=== PATIENT | male | born 2005 | race Caucasian/White ===

== ENCOUNTER 2024-12-28 13:10 | Emergency (ER) | payer OTHER, SELFPAY ==
[2024-12-28 13:10] VITALS: BP 134/80; PULSE 79; RESP 16; TEMP 37.1; O2SAT 100
[2024-12-28 13:12] VITALS: BMI 23.6
[2024-12-28 14:19] LABS: Hematocrit 43.2 % (40-54); Hemoglobin 15.2 g/dL (13.0-16.5); Immature Granulocytes Count 0.040 X10^3/uL (0.0-0.0); Mean Corp Hgb Conc 35.2 g/dL (32-36); Mean Corpuscular Volume 89.4 fL (80-94); Mean Platelet Vol. 9.5 fl (6.2-12.0); NRBC Flagged by Analyzer 0 % (0-5); Platelet Count 283 K/mm3 (150-450); RBC Distribution Width CV 11.9 % (11.6-14.6); RBC Distribution Width SD 38.5 fl (35.1-43.9); Red Blood Count 4.83 M/mm3 (4.6-6.2); White Blood Count 9.5 K/mm3 (4.4-11.0)
[2024-12-28] MEDS: 0.9% Normal Saline (1000mL) 1,000 ML 999 ML IV (14:51)
[2024-12-28 15:10] VITALS: BP 127/80; PULSE 76; RESP 16; O2SAT 100
--- NOTE | 2024-12-28 15:14 | CT_ITS ---
PROCEDURE: BRAIN/HEAD WITHOUT CONTRAST 12/28/2024 REASON FOR EXAM: HEADACHE TECHNIQUE: BRAIN/HEAD WITHOUT CONTRAST Coronal and Sagittal reconstruction series were provided. One or more dose reduction techniques were used (e.g., Automated exposure control, adjustment of the mA and/or kV according to patient size, use of iterative reconstruction technique. RADIATION DOSE SUMMARY: CTDlvol: 44.99 mGy DLP: 812.98 mGycm COMPARISON: None. FINDINGS: No acute intracranial hemorrhage, extra-axial collection, mass effect or evidence of acute infarct. Ventricles and subarachnoid spaces are normal in size. Asymmetric narrow caliber of the left lateral ventricle relative to the right, an anatomic variant. Unremarkable orbits. Intact skull base and calvarium. Complete opacification of right maxillary sinus with hypoplasia relative to the left maxillary sinus. Remainder of paranasal sinuses and mastoid air cells are clear. CT/Brain/Head without Contrast IMPRESSION: 1. No acute intracranial abnormality. 2. Right maxillary sinus disease. Reading Location: [id number]
[2024-12-28 15:36] LABS: AST(SGOT) 40 U/L (<=37); Alanine Aminotransfer ALT/SGPT 69 U/L (<=46); Albumin, Serum 4.6 g/dL (3.5-5.0); Alkaline Phosphatase 83 U/L (40-129); Anion Gap 16 (5-15); BUN 11 mg/dL (4-19); BUN/Creat Ratio 14.1 RATIO (10-20); Calcium,Total 9.7 mg/dL (7.6-11.0); Carbon Dioxide 21.6 mmol/L (21.0-32.0); Chloride 99 mmol/L (98-108); Estimated Creatinine Clearance 156.88 ml/min (50-250); Globulin 3.2 g/dL (2.2-4.2); Glucose 122 mg/dL (70-99); Lipase 24 U/L (13-75); Potassium 4.0 mmol/L (3.3-5.1)
--- NOTE | 2024-12-28 16:04 | EDS_ITS ---
HPI History of Present Illness Chief Complaint: General Illness Narrative Narrative: Patient is a 19-year-old male with no known significant past medical history who presented to the emergency department the chief complaint of headache, nausea vomiting not feeling well. According to the parents he was just here last night around 10 PM was given a migraine cocktail and was sent home. They noted that he still is having a headache and having nausea and vomiting not feeling well therefore they brought him back. They deny any recent contacts. PFSH PFSH Home Medications ?Medication ?Instructions ?Recorded ?Last Taken ?Type No Known/Unobtainable [No Known 5 Unknown History Home Medications] Allergy/AdvReac Type Severity Reaction Status Date / Time No Known Allergies Allergy Verified 12/28/24 13:13 Family History no significant family his Surgical History Status post medial meniscus repair of left knee Surgical History no surgical history Social History Smoking Status: Never smoker ROS ROS ED ROS Narrative Constitutional: Complains of fever and chills as well as headache denies lightheadedness or dizziness Eyes: Denies double vision blurry vision change in vision Abdomen: Complains of nausea and vomiting as noted above denies any abdominal pain : Denies urinary symptoms Neurological: Denies numbness, weakness, tingling Musculoskeletal: Denies back pain Skin: Denies any rashes or lesions EXAM Physical Exam Narrative Exam Narrative: General: Patient was lying in bed rest comfortably did not appear to be acute distress Head: Atraumatic, normocephalic Eyes: PERRL bilaterally, EOMI blood, no conjunctival injection noted Neck: Soft, supple, trachea midline Cardiovascular: Regular rate and rhythm no murmurs gallops rubs noted Respiratory: Clear to auscultation bilaterally Abdomen: Soft, nondistended, no tenderness palpation Extremities: +5/5 strength noted in the bilateral upper and lower extremities Neurological: Patient following commands knew that he was at [facility] year is 2024. No concern for meningitis Skin: Warm, dry, intact no rashes or lesions noted no petechia no purpura Const Vital Signs: 12/28/24 13:10 12/28/24 13:26 12/28/24 15:10 Temperature 98.8 F Temperature Source Oral Pulse Rate 79 76 Respiratory Rate 16 16 Respiratory Effort Normal Respiratory Pattern Normal Blood Pressure 134/80 H 127/80 H Blood Pressure Mean 98 95 Pulse Ox 100 100 Oxygen Delivery Method Room Air Room Air 12/28/24 17:00 Temperature Temperature Source Pulse Rate 73 Respiratory Rate 14 Respiratory Effort Respiratory Pattern Blood Pressure 139/92 H Blood Pressure Mean 107 Pulse Ox 100 Oxygen Delivery Method Room Air MDM MDM MDM Narrative Medical decision making narrative: Patient is a 19-year-old male who presented to the emergency department chief complaint of headache, nausea vomiting. On the differential diagnosis includes but not limited to migraine headache, viral gastroenteritis, dehydration, heriberto ctrolyte abnormality. Once workup is obtained reviewed he will be reevaluated. Patient be given IV fluids Zofran and Toradol. Patient CBC was reviewed and showed no evidence of leukocytosis white blood count of 9.5, he was 15.2, platelet count of 283. Patient sodium 136, potassium normal at 4, creatinine normal at 0.80. Patient's glucose was 122, AST and ALT were 40 and 69 respectively total bilirubin normal at 0.36. Patient lipase normal at 24. Patient's CT head brain without contrast showed no acute intracranial abnormalities. On reevaluation the patient and he states that he was still having a headache and was feeling better but not significantly. He was ordered Toradol Benadryl and D5 NS. On reevaluation of the patient again and he is feeling better he did pass oral challenge. Repeat abdominal exam performed again at 6:35 PM his abdomen remains benign therefore do not feel that CT abdomen pelvis is indicated at this point in time. He was advised to follow-up with In outpatient settings to start with a bland diet and advance as tolerated. He already has Zofran at home ODT he is advised to use this as prescribed. Parents and himself are agreeable with this plan all question concerns answered he was discharged home in stable condition. Lab Data Labs: Laboratory Results - last 24 hr 12/28/24 13:33 WBC 9.5 RBC 4.83 Hgb 15.2 Hct 43.2 MCV 89.4 MCH 31.5 MCHC 35.2 RDW Std Deviation 38.5 RDW Coeff of Elmer 11.9 Plt Count 283 MPV 9.5 Immature Gran % (Auto) 0.400 Neut % (Auto) 85.2 H Lymph % (Auto) 6.9 L [place] % (Auto) 7.4 Eos % (Auto) 0.0 Baso % (Auto) 0.1 Absolute Neuts (auto) 8.1 H Absolute Lymphs (auto) 0.66 L Nucleated RBC % 0 Sodium 136 Potassium 4.0 Chloride 99 Carbon Dioxide 21.6 Anion Gap 16 H BUN 11 Creatinine 0.80 Estim Creat Clear Calc 156.88 Est GFR (MDRD) Non-Af 130 BUN/Creatinine Ratio 14.1 Glucose 122 H Calcium 9.7 Total Bilirubin 0.36 AST 40 H ALT 69 H Alkaline Phosphatase 83 Total Protein 7.9 Albumin 4.6 Globulin 3.2 Albumin/Globulin Ratio 1.4 Lipase 24 Radiography Diagnostic Testing: Clinical Impression(s) from Imaging Studies Brain CT 12/28/24 15:14 IMPRESSION: 1. No acute intracranial abnormality. 2. Right maxillary sinus disease. Reading Location: [facility] Discharge Plan Triage Chief Complaint: General Illness ED Provider: Jg Woodard Dx/Rx/DC Orders Clinical Impression: Headache, Nausea & vomiting Prescriptions: No Action No Known Home Medications Primary Care Provider: Care Physician,No Primary Referrals: Care Physician,No Primary [Primary Care Provider] - Activity Restrictions/Additional Instructions: Follow-up with your doctor in outpatient setting. Return with worsening symptoms or concerns. Your CT of your head was normal, your blood work did not show any acute findings no evidence of dehydration. Ensure that you are adequately hydrating with plenty of water start with a bland diet such as crackers, plain toast etc. and advance as tolerated. Rotate Tylenol and ibuprofen [id number] for your headache when you do this she can take something every 3 hours max dose of Tylenol in 24 hours 4000 mg max dose of ibuprofen in 24 hours 3200 mg. Use Zofran that you have at home as prescribed Print Language: Indonesian Disposition Disposition: Home, Self Care
[2024-12-28 17:00] VITALS: BP 139/92; PULSE 73; RESP 14; O2SAT 100
[2024-12-28] MEDS: DiphenhydrAMINE 50 MG/ML Syringe 25 MG IV (17:04)
[2024-12-28] MEDS: Dextrose 5%/0.9% NaCl 1,000 ML 999 ML IV (17:04)
[2024-12-28 18:44] VITALS: BP 139/92; PULSE 73; RESP 14; TEMP 37.1; O2SAT 100
--- OUTSIDE RECORDS SUMMARY | 2024-12-28 22:19 | XMS RPT_ITS | CCD ---
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, Md Primary Care Provider Cammy DALIA Connolly Referring Unavailable HUMBERTO ESCAMILLA Attending Unavailabl e NO PRIMARY CARE, Primary Care Unavailable NO PRIMARY CARE, Primary Care Unavailable REFERRED, SELF Referring Unavailable TOMAS MALIN JR Attending Unavailable REFERRED, SELF Referring Unavailable TOMAS MALIN JR Attending Unavailable NO PRIMARY CARE, Primary Care Unavailable NO PRIMARY CARE, Primary Care Unavailable TOMAS MALIN JR Attending Unavailable TOMAS MALIN JR Admitting Unavailable NO PRIMARY CAREMD Referring Unavailable TOMAS MALIN JR Attending Unavailable NO PRIMARY CARE, Primary Care Unavailable MILDRED BRUNER Attending Unavailable NO PRIMARY CARE, Primary Care Unavailable NO PRIMARY CARE, Referring Unavailable NO PRIMARY CARE, Primary Care Unavailable TOMAS MALIN JR Attending Unavailable NO PRIMARY CARE, Referring Unavailable Dr. Maximo Garcia DO Emergency Provider Care Physician, No Primary Primary Care Provider Unavailable Dr. Jg Woodard DO Referring Provider Dr. Jg Woodard DO Emergency Provider [phone] Care Physician, No Primary Primary Care Provider Unavailable Unavailable Primary Care Provider Unavailabl e Medications Current Medications Medication Drug Class(es) Dates Sig (Normalized) Sig (Original) acetaminophen 325 mg / HYDROcodone bitartrate 5 mg oral tablet (1 source) Opioid Agonist Start: 09-03-2022 End: 09-08-2022 take 1 tablet by mouth every six hours as needed for pain HYDROcodone-aceta minophen (NORCO) 5-325 MG tablet Take 1 Tablet by mouth every 6 hours as needed for Pain for up to 5 days 12 Tablet 0 09/03/2022 09/08/2022 Active aspirin 81 mg delayed release oral tablet (1 source) Platelet Aggregation Inhibitor, Nonsteroidal Anti-inflammatory Drug Start: 09-03-2022 End: 09-17-2022 take 1 tablet by mouth once daily aspirin EC (ECOTRIN LOW STRENGTH) 81 MG EC tablet Take 1 Tablet (81 mg) by mouth daily for 14 days 14 Tablet 0 09/03/2022 09/17/2022 Active cetirizine hydrochloride 10 mg oral tablet (1 source) Histamine-1 Receptor Antagonist Start: 07-11-2019 take 1 tablet by mouth once daily cetirizine (ZYRTEC) 10 mg tablet Indications: Sore throat Take 1 tablet by mouth once daily. 10 tablet 07/11/2019 Active ibuprofen 200 mg oral tablet (1 source) Nonsteroidal Anti-inflammatory Drug Start: 09-03-2022 take 2 tablets by mouth every six hours as needed for pain ibuprofen (MOTRIN) 200 MG tablet Take 2 Tablets (400 mg) by mouth every 6 hours as needed for Pain Take with meals. 40 Tablet 0 09/03/2022 Active ondansetron 4 mg disintegrating oral tablet (2 sources) Serotonin-3 Receptor Antagonist Start: 12-28-2024 take 1 tablet by mouth three times daily as needed for nausea and vomiting Ondansetron 4 mg tablet,disintegra ting Active 4 mg PO THREE TIMES A DAY as needed for nausea and vomiting 21 0 December 28, 2024 12:27am Start: 09-03-2022 take 1 tablet by tae th every eight hours as needed for nausea ondansetron (ZOFRAN) 4 MG tablet Take 1 Tablet (4 mg) by mouth every 8 hours as needed for Nausea 10 Tablet 0 09/03/2022 Active Completed/Discontinued Medications Medication Drug Class(es) Dates Sig (Normalized) Sig (Original) calcium chloride 0.0014 meq/ml / potassium chloride 0.004 meq/ml / sodium chloride 0.103 meq/ml / sodium lactate 0.028 meq/ml injectable solution (1 source) Start: 09-03-2022 End: 09-03-2022 CONTINUOUS, Intravenous, at 112 mL/hr, Starting on Wed09/03/22 at 1330, For 90 days, PACU Oxygen (1 source) Start: 09-03-2022 End: 09-03-2022 See Flowsheet Row, PRN, Starting on Wed09/03/22 at 1309, Until Wed09/03/22 at 1444 Keep sats greater or equal to 95% Problems Problem Classification Problem Date Documented Da te Episodic/Chronic Headache; including migraine (2 sources) Headache; Translations: [Headache] 12-28-2024 Episodic Joint disorders and dislocations; trauma-related (3 sources) Tear of medial meniscus of knee; Translations: [Other tear of medial meniscus, current injury, left knee, initial encounter] Onset: 08-04-2022 09-03-2022 Episodic Nausea and vomiting (1 source) Nausea and vomiting; Translations: [Nausea with vomiting, unspecified] 12-28-2024 Episodic Viral infection (1 source) Viral disease; Translations: [Viral infection, unspecified] 12-28-2024 Episodic Results Test Name Value Interpretation Reference Range Facility Absolute lymphocyte countOrd ered By: Jg Woodard on 12-28-2024 Lymphocytes Auto (Unsp spec) [#/Vol] 0.66 10*3/uL Low 0.83-4.51 [facility] Absolute neutrophil countOrd ered By: Jg Woodard on 12-28-2024 Neutrophils (Bld) [#/Vol] 8.1 10*3/uL High 2.0-7.7 [facility] Anion gap in Serum or Plasma Ordered By: Jg Woodard on 12-28-2024 Anion gap [Moles/Vol] 16 mmol/L High 5-15 [facility] Automated lymphocyte count a s percentage of total leukocytesOrdered By: Jg Woodard on 12-28-2024 Lymphocytes/100 WBC Auto (Unsp spec) 6.9 % Low 19-41 [facility] BUN/creatinine ratioOrdered By: Jg Woodard on 12-28-2024 Urea nitrogen/Creatinine [Mass ratio] 14.1 mg/mg 10-20 [facility] Basophil percentageOrdered B y: Jg Woodard on 12-28-2024 Basophils/100 WBC (Bld) 0.1 % 0-1 [facility] Bilirubin, totalOrdered By: Jg Woodard on 12-28-2024 Bilirubin [Mass/Vol] 0.36 mg/dL 0.00-1.30 [facility] Carbon dioxide, total [Moles /volume] in Central venous bloodOrdered By: Jg Woodard on 12-28-2024 CO2 [Moles/Vol] 21.6 mmol/L 21.0-32.0 [facility] Chloride assayOrdered By: Paramjit Woodard on 12-28-2024 Chloride [Moles/Vol] 99 mmol/L 98-108 [facility] Eosinophil percentageOrdered By: Jg Woodard on 12-28-2024 Eosinophils/100 WBC (Bld) 0.0 % 0-5 [facility] Erythrocyte distribution wid th ratioOrdered By: Jg Woodard on 12-28-2024 Erythrocyte distribution width (RBC) [Ratio] 11.9 % 11.6-14.6 [facility] Erythrocyte distribution wid th standard deviationOrdered By: Jg Woodard on 12-28-2024 Erythrocyte distribution width (RBC) [Ratio] 38.5 fl 35.1-43.9 [facility] Glomerular filtration rate ( GFR) estimation/1.73 sq m using serum, plasma, or whole bOrdered By: Jg Woodard on 12-28-2024 GFR/1.73 sq M.predicted among non-blacks MDRD (S/P/Bld) [Vol rate/Area] 130 mL/min/{1.73_m2} >60 [facility] Comment on above: mL/min/1.73m2 CKD-EP I Creatinine Equation (2020) Hematocrit Auto (Bld) [Volum e fraction]Ordered By: Jg Woodard on 12-28-2024 Hematocrit (Bld) [Volume fraction] 43.2 % 40-54 [facility] Hemoglobin measurementOrdere d By: Jg Woodard on 12-28-2024 Hemoglobin (Bld) [Mass/Vol] 15.2 g/dL 13.0-16.5 [facility] Immature granulocytes/100 WB C Auto (Bld)Ordered By: Jg Woodard on 12-28-2024 Immature granulocytes/100 WBC (Bld) 0.400 % 0.0-0.9 [facility] Comment on above: IG% - Immature Granu locytes (promyelocytes, myelocytes and metamyelocytes) > 1% indicates that a LEFT SHIFT is Present. Laboratory - Chemistry and C hemistry - challengeOrdered By: Jg Woodard on 12-28-2024 AST [Catalytic activity/Vol] 40 U/L High <38 [facility] Lipase measurementOrdered By : Jg Woodard on 12-28-2024 Lipase [Catalytic activity/Vol] 24 U/L 13-75 [facility] Comment on above: Please note:LIPASE r evised reference range effective 22. New Lipase methodology. Expected to produce lower values than the previous assay method. NEW Reference Range: 13 - 75 U/L MCV (mean corpuscular volume ) determinationOrdered By: Jg Woodard on 12-28-2024 MCV (RBC) [Entitic vol] 89.4 fL 80-94 [facility] Mean corpuscular hemoglobin (MCH) determinationOrdered By: Jg Woodard on 12-28-2024 MCH (RBC) [Entitic mass] 31.5 pg 27.0-32.0 [facility] Mean corpuscular hemoglobin concentration (MCHC) determinationOrdered By: Jg Woodard on 12-28-2024 MCHC (RBC) [Mass/Vol] 35.2 g/dL 32-36 [facility] Mean platelet volume determi nationOrdered By: Jg Woodard on 12-28-2024 Platelet mean volume (Bld) [Entitic vol] 9.5 fL 6.2-12.0 [facility] Monocyte percentageOrdered B y: Jg Woodard on 12-28-2024 Monocytes/100 WBC (Bld) 7.4 % 0-10 [facility] Neutrophil percentageOrdered By: Jg Woodard on 12-28-2024 Neutrophils/100 WBC (Bld) 85.2 % High 47-70 [facility] Nucleated red blood cell per centageOrdered By: Jg Woodard on 12-28-2024 Nucleated RBC/100 WBC (Bld) [Ratio] 0 % 0-5 [facility] Platelet countOrdered By: Paramjit Woodard on 12-28-2024 Platelets (Bld) [#/Vol] 283 10*3/uL 150-450 [facility] Potassium measurement (mass/ volume)Ordered By: Jg Woodard on 12-28-2024 Potassium (Unsp spec) [Mass/Vol] 4.0 mmol/L 3.3-5.1 [facility] RBC Auto (Bld) [#/Vol]Ordere d By: Jg Woodard on 12-28-2024 RBC (Bld) [#/Vol] 4.83 10*6/uL 4.6-6.2 [facility] Serum creatinine measurement (mass/volume)Ordered By: Jg Woodard on 12-28-2024 Creatinine [Mass/Vol] 0.80 mg/dL 0.70-1.20 [facility] Serum globulin measurementOr dered By: Jg Woodard on 12-28-2024 Globulin (S) [Mass/Vol] 3.2 g/dL 2.2-4.2 [facility] Serum glucose measurement (m ass/volume)Ordered By: Jg Woodard on 12-28-2024 Glucose [Mass/Vol] 122 mg/dL High 70-99 [facility] Serum or plasma alanine chen otransferase (ALT) measurementOrdered By: Jg Woodard on 12-28-2024 ALT [Catalytic activity/Vol] 69 U/L High <47 [facility] Serum or plasma albumin bre urement (mass/volume)Ordered By: Jg Woodard on 12-28-2024 Albumin [Mass/Vol] 4.6 g/dL 3.5-5.0 [facility] Serum or plasma albumin/glob ulin mass ratioOrdered By: Jg Woodard on 12-28-2024 Albumin/Globulin [Mass ratio] 1.4 {ratio} 0.9-2.4 [facility] Serum or plasma alkaline nestor sphatase measurementOrdered By: Jg Woodard on 12-28-2024 ALP [Catalytic activity/Vol] 83 U/L 40-129 [facility] Serum or plasma calcium bre urement (mass/volume)Ordered By: Jg Woodard on 12-28-2024 Calcium [Mass/Vol] 9.7 mg/dL 7.6-11.0 [facility] Serum or plasma urea nitroge n measurement (mass/volume)Ordered By: Jg Woodard on 12-28-2024 Urea nitrogen [Mass/Vol] 11 mg/dL 4-19 [facility] Sodium levelOrdered By: Pamela Woodard on 12-28-2024 Sodium [Moles/Vol] 136 mmol/L 133-145 [facility] Total proteinOrdered By: Levi Woodard on 12-28-2024 Protein [Mass/Vol] 7.9 g/dL 5.9-8.4 [facility] White blood cell (WBC) count Ordered By: Jg Woodard on 12-28-2024 WBC (Bld) [#/Vol] 9.5 10*3/uL 4.4-11.0 [facility] Absolute lymphocyte countOrd ered By: Maximo Garcia on 12-27-2024 Lymphocytes Auto (Unsp spec) [#/Vol] 0.85 10*3/uL 0.83-4.51 [facility] Absolute neutrophil countOrd ered By: Maximo Garcia on 12-27-2024 Neutrophils (Bld) [#/Vol] 6.3 10*3/uL 2.0-7.7 [facility] Anion gap in Serum or Plasma Ordered By: Maximo Garcia on 12-27-2024 Anion gap [Moles/Vol] 15 mmol/L 5-15 [facility] Automated lymphocyte count a s percentage of total leukocytesOrdered By: Maximo Garcia on 12-27-2024 Lymphocytes/100 WBC Auto (Unsp spec) 10.4 % Low 19-41 [facility] BUN/creatinine ratioOrdered By: Maximo Garcia on 12-27-2024 Urea nitrogen/Creatinine [Mass ratio] 12.5 mg/mg 10-20 [facility] Basophil percentageOrdered B y: Maximo Garcia on 12-27-2024 Basophils/100 WBC (Bld) 0.4 % 0-1 [facility] Bilirubin directOrdered By: Maximo Garcia on 12-27-2024 Bilirubin.direct [Mass/Vol] 0.11 mg/dL 0.00-0.30 [facility] Bilirubin, totalOrdered By: Maximo Garcia on 12-27-2024 Bilirubin [Mass/Vol] 0.30 mg/dL 0.00-1.30 [facility] Carbon dioxide, total [Moles /volume] in Central venous bloodOrdered By: Maximo Garcia on 12-27-2024 CO2 [Moles/Vol] 24.4 mmol/L 21.0-32.0 [facility] Chloride assayOrdered By: Kaylynn Garcia on 12-27-2024 Chloride [Moles/Vol] 99 mmol/L 98-108 [facility] Eosinophil percentageOrdered By: Maximo Garcia on 12-27-2024 Eosinophils/100 WBC (Bld) 0.1 % 0-5 [facility] Erythrocyte distribution wid th ratioOrdered By: Maximo Garcia on 12-27-2024 Erythrocyte distribution width (RBC) [Ratio] 11.9 % 11.6-14.6 [facility] Erythrocyte distribution wid th standard deviationOrdered By: Maximo Garcia on 12-27-2024 Erythrocyte distribution width (RBC) [Ratio] 39.3 fl 35.1-43.9 [facility] Glomerular filtration rate ( GFR) estimation/1.73 sq m using serum, plasma, or whole bOrdered By: Maximo Garcia on 12-27-2024 GFR/1.73 sq M.predicted among non-blacks MDRD (S/P/Bld) [Vol rate/Area] 127 mL/min/{1.73_m2} >60 [facility] Comment on above: mL/min/1.73m2 CKD-EP I Creatinine Equation (2020) Hematocrit Auto (Bld) [Volum e fraction]Ordered By: Maximo Garcia on 12-27-2024 Hematocrit (Bld) [Volume fraction] 44.3 % 40-54 [facility] Hemoglobin measurementOrdere d By: Maximo Garcia on 12-27-2024 Hemoglobin (Bld) [Mass/Vol] 16.0 g/dL 13.0-16.5 [facility] Immature granulocytes/100 WB C Auto (Bld)Ordered By: Maximo Garcia on 12-27-2024 Immature granulocytes/100 WBC (Bld) 0.500 % 0.0-0.9 [facility] Comment on above: IG% - Immature Granu locytes (promyelocytes, myelocytes and metamyelocytes) > 1% indicates that a LEFT SHIFT is Present. Laboratory - Chemistry and C hemistry - challengeOrdered By: Maximo Garcia on 12-27-2024 AST [Catalytic activity/Vol] 39 U/L High <38 [facility] Lipase measurementOrdered By : Maximo Garcia on 12-27-2024 Lipase [Catalytic activity/Vol] 16 U/L 13-75 [facility] Comment on above: Please note:LIPASE r evised reference range effective 22. New Lipase methodology. Expected to produce lower values than the previous assay method. NEW Reference Range: 13 - 75 U/L MCV (mean corpuscular volume ) determinationOrdered By: Maximo Garcia on 12-27-2024 MCV (RBC) [Entitic vol] 90.2 fL 80-94 [facility] Mean corpuscular hemoglobin (MCH) determinationOrdered By: Maximo Garcia on 12-27-2024 MCH (RBC) [Entitic mass] 32.6 pg High 27.0-32.0 [facility] Mean corpuscular hemoglobin concentration (MCHC) determinationOrdered By: Maximo Garcia on 12-27-2024 MCHC (RBC) [Mass/Vol] 36.1 g/dL High 32-36 [facility] Mean platelet volume determi nationOrdered By: Maximo Garcia on 12-27-2024 Platelet mean volume (Bld) [Entitic vol] 9.7 fL 6.2-12.0 [facility] Monocyte percentageOrdered B y: Maximo Garcia on 12-27-2024 Monocytes/100 WBC (Bld) 11.6 % High 0-10 [facility] Neutrophil percentageOrdered By: Maximo Garcia on 12-27-2024 Neutrophils/100 WBC (Bld) 77.0 % High 47-70 [facility] Nucleated red blood cell per centageOrdered By: Maximo Garcia on 12-27-2024 Nucleated RBC/100 WBC (Bld) [Ratio] 0 % 0-5 [facility] Platelet countOrdered By: Kaylynn Garcia on 12-27-2024 Platelets (Bld) [#/Vol] 286 10*3/uL 150-450 [facility] Potassium measurement (mass/ volume)Ordered By: Maximo Garcia on 12-27-2024 Potassium (Unsp spec) [Mass/Vol] 3.6 mmol/L 3.3-5.1 [facility] RBC Auto (Bld) [#/Vol]Ordere d By: Maximo Garcia on 12-27-2024 RBC (Bld) [#/Vol] 4.91 10*6/uL 4.6-6.2 [facility] Serum creatinine measurement (mass/volume)Ordered By: Maximo Garcia on 12-27-2024 Creatinine [Mass/Vol] 0.87 mg/dL 0.70-1.20 [facility] Serum globulin measurementOr dered By: Maximo Garcia on 12-27-2024 Globulin (S) [Mass/Vol] 3.2 g/dL 2.2-4.2 [facility] Serum glucose measurement (m ass/volume)Ordered By: Maximo Garcia on 12-27-2024 Glucose [Mass/Vol] 112 mg/dL High 70-99 [facility] Serum or plasma alanine chen otransferase (ALT) measurementOrdered By: Maximo Garcia on 12-27-2024 ALT [Catalytic activity/Vol] 74 U/L High <47 [facility] Serum or plasma albumin bre urement (mass/volume)Ordered By: Maximo Garcia on 12-27-2024 Albumin [Mass/Vol] 4.5 g/dL 3.5-5.0 [facility] Serum or plasma alkaline nestor sphatase measurementOrdered By: Maximo Garcia on 12-27-2024 ALP [Catalytic activity/Vol] 81 U/L 40-129 [facility] Serum or plasma calcium bre urement (mass/volume)Ordered By: Maximo Garcia on 12-27-2024 Calcium [Mass/Vol] 9.6 mg/dL 7.6-11.0 [facility] Serum or plasma urea nitroge n measurement (mass/volume)Ordered By: Maximo Garcia on 12-27-2024 Urea nitrogen [Mass/Vol] 11 mg/dL 4-19 [facility] Sodium levelOrdered By: Maxi Garcia on 12-27-2024 Sodium [Moles/Vol] 138 mmol/L 133-145 [facility] Streptococcus pyogenes rRNA detection in throat by DNA probeOrdered By: Maximo Garcia on 12-27-2024 S. pyogenes rRNA Probe Ql (Throat) [facility] Total proteinOrdered By: Donato Garcia on 12-27-2024 Protein [Mass/Vol] 7.7 g/dL 5.9-8.4 [facility] White blood cell (WBC) count Ordered By: Maximo Garcia on 12-27-2024 WBC (Bld) [#/Vol] 8.2 10*3/uL 4.4-11.0 [facility] Progress Noteon 12-04-2022 [employer] Authentication Interface Message Text Date of service: December 04, 2022 Patient's name: Matt Lay CSN: [id number] DIAGNOSIS: Follow-up left knee arthroscopic Lateral meniscus partial meniscectomy and repair with all inside technique performed by Dr. Kimo Jr. on 09/03/22. HISTORY OF PRESENT ILLNESS: Matt Lay presents today for follow-up of the abovementioned procedure. Matt has reportedly done well without complaints of significant pain, numbness, or tingling in the left lower extremity while in the brace. He has been weightbearing as tolerated. He is yet to begin physical therapy as prescribed. He is yet to return to running or jumping activities. Matt has not had fevers, chills, night sweats, or additional symptomology suggestive of infection. 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 The history is provided by Matt and his mother, who accompany him today. They deny additional questions or concerns at this time. PHYSICAL EXAMINATION: Matt is a previously healthy well-nourished, well-developed 17 y.o. year-old male, in no apparent distress. Upon examination of the left knee, the incisions are well-healed. The surrounding skin is intact. There is a large mass located in the posterior medial aspect of his knee, which was previously drained and injected and has since returned. There is no erythema, edema, or drainage noted. The left lower extremity is distally neurovascularly intact to motor and sensory testing. All five toes are pink and warm with brisk capillary refill noted. He has full extension present. He has full knee extension. He can achieve flexion to 135 degrees without pain or difficulty. No pain with varus or valgus stress of the knee. Apprehension testing is negative. Mago testing is negative. Sharona testing is negative. X-RAYS: not indicated DIAGNOSIS AND IMPRESSION: 3 months s/p left knee arthroscopic Lateral meniscus partial meniscectomy and repair with all inside technique performed by Dr. Kimo Jr. on 09/03/22. DISCUSSION AND TREATMENT PLAN: At this time, Marlena is doing well. We discussed return to jogging using a 03/30/10 program in office today. In 2 weeks, he can begin working with his PT on some inline jumping. In 1 month, he can gradually return to all athletics using pain as a guide. We encouraged him to continue to stretch and strengthen, as is important main strong and flexible. He can ice and use ibuprofen as needed for occasional discomforts. We discussed repeat aspiration and injection of his Fitzgerald's cyst, he would like to defer at this time. We will see Matt back in 3 months for routine 6-month check. He and his mother are in agreement to call our office questions or concerns in the interim. Family Medical History: History reviewed. No pertinent family history. Social History: Social History Tobacco Use Smoking status: Never Passive exposure: Never Smokeless tobacco: Never Normal [facility] Progress Noteon 10-23-2022 [employer] Authentication Interface Message Text I have personally shared in the visit of Matt Lay, providing bedside participation in the E&M service. I saw and evaluated the patient and discussed the plan with the MASSIEL I have performed one each of the history, exam, and medical decision making, and agree with the above documentation as annotated and corrected by me in strikethrough and italics. As a split/shared visit involving both the surgeon and the MASSIEL, the substantive portion of the medical-decision making was completed by the me, Dr. Polina Malin Jr., M.D. [facility] [employer] Authentication Interface Message Text Date of service: October 23, 2022 Patient's name: Matt Lay [facility]: [id number] DIAGNOSIS: Follow-up left knee arthroscopic Lateral meniscus partial meniscectomy and repair with all inside technique performed by Dr. Kimo Jr. on 09/03/22. HISTORY OF PRESENT ILLNESS: Matt Lay presents today for follow-up of the abovementioned procedure. Matt has reportedly done well without complaints of significant pain, numbness, or tingling in the left lower extremity while in the brace. He has been weightbearing as tolerated. He is yet to begin physical therapy. Matt has not had fevers, chills, night sweats, or additional symptomology suggestive of infection. The history is provided by Matt and his parents, who accompany him today. They deny additional questions or concerns at this time. PHYSICAL EXAMINATION: Matt is a previously healthy well-nourished, well-developed 17 y.o. year-old male, in no apparent distress. Upon examination of the left knee, the incisions are well approximated. The surrounding skin is intact. There is a large mass located in the posterior medial aspect of his knee, which was previously drained and injected and has returned. There is no erythema, edema, or drainage noted. The left lower extremity is distally neurovascularly intact to motor and sensory testing. All five toes are pink and warm with brisk capillary refill noted. He has full extension present. He can achieve full extension. Flexion to 110, with minimal pain. X-RAYS: not indicated DIAGNOSIS AND IMPRESSION: 7 weeks s/p left knee arthroscopic Lateral meniscus partial meniscectomy and repair with all inside technique performed by Dr. Kimo Jr. on 09/03/22. DISCUSSION AND TREATMENT PLAN: The treatment plan was discussed and agreed upon with Dr. Kimo Fritz, who also personally examined Matt today. At this time, Matt is doing well. We provided him with a physical therapy prescription to work on quad strengthening and range of motion. He should continue to ice, elevate, and use ibuprofen as needed for occasional discomforts. He should avoid basketball related activities/cutting pivoting until we see him back. In regards to work, we encouraged 1 month of rest before return. We will see Matt back in 6 weeks for repeat clinical exam. He and his parents are in agreement to call our office questions or concerns in the interim. Family Medical History: No family history on file. Social History: Normal [facility] Progress Noteon 09-18-2022 [employer] Aut[employer] Interface Message Text Review of systems is negative for other significant musculoskeletal pain, loss of vision, hearing loss, high blood pressure, shortness of breath, skin ulcers, paresthesia, lymphedema, temperature intolerance, or nausea, unless otherwise stated in the history of present illness or past medical history. Past Medical History No past medical history on file. Past Surgical History: Procedure Laterality Date KNEE ARTHROSCOPY Left 09/03/2022 ARTHROSCOPY KNEE MENISCAL REPAIR, repair as indicated performed by Tomas Malin Jr., MD at [facility] Family Medical History: No family history on file. CHIEF COMPLAINT: Patient presents for 2-week postop follow-up status post left knee arthroscopic lateral and medial meniscus repair and meniscectomy date of surgery 09/03/[address] Kimo Lipscomb HISTORY OF PRESENT ILLNESS: Patient presents with his mom and dad for 2-week postop follow-up after left knee arthroscopic lateral and medial meniscus repair and meniscectomy date of surgery 09/03/[address] Kimo Lipscomb. Since surgery patient's been doing well touchdown weightbearing with crutches in T ROM knee brace locked in extension and unlocked 0-[address] Malin when sitting. Denies increased pain swelling redness bruising numbness tingling. Denies fever malaise denies bleeding discharge odor. Patient leaving for [place] vacation at [facility] in 2 weeks will be back on October 16 requests rescheduling next appointment at the 6-week when he gets back. PHYSICAL EXAMINATION: Patient is a well-developed, well-nourished 16-year-old [id number]. Exam left lower extremity arthroscopic surgical incisions x2 clean dry intact well approximated healing with Steri-Strips intact no erythema bleeding discharge odor nontender. There is baseline 3 x 3 cm soft Fitzgerald's cyst popliteal fossa nontender. Neurovascularly motor or sensory function grossly intact with deep and superficial peroneal nerve and tibial nerve brisk cap refill less than 3 seconds, wiggles all digits left foot pink warm sensitive to light touch. IMAGING: None today. DIAGNOSIS AND IMPRESSION: Patient presents for 2-week postop follow-up status post left knee arthroscopic lateral and medial meniscus repair and meniscectomy date of surgery 09/03/[address] Kimo Lipscomb DISCUSSION AND TREATMENT PLAN: Patient doing well at 2-week postop. Advised to remain in T ROM hinged brace 0-90 sitting locked in extension may advance to weightbearing as tolerated in brace continue to use crutches as advised. Advised to continue OTC NSAIDs and ice pack as needed. Advise no gym no sports. Advised that when on vacation at the [place] to remain in the brace at all times except when bathing and showering. Follow-up with Dr. Malin in 4 weeks at the 6-weeks Sooner as needed if new questions or concerns arise. Normal [facility] H&Kumar 09-03-2022 Hand Cell Tuber Authentication Interface Message Text I have reviewed the previous H&P performed by the PLASTIC PRODUCTION MACHINE SETTER/resident and agree with the documentation. I have examined the patient, reviewed the H&P, and there are no changes. If changes and updates are needed they are documented here: Normal [facility] Progress Noteon 07-29-2022 Hand Cell Tuber Authentication Interface Message Text Review of systems is negative for other significant musculoskeletal pain, loss of vision, hearing loss, high blood pressure, shortness of breath, skin ulcers, paresthesia, lymphedema, temperature intolerance, or nausea, unless otherwise stated in the history of present illness or past medical history. Past Medical History No past medical history on file. No past surgical history on file. Family Medical History: No family history on file. CHIEF COMPLAINT: left knee HISTORY OF PRESENT ILLNESS: This is a 16 y.o. who presents today with the complaint of left knee pain. MRI positive meniscus tear. The patient reports occasional painful and catching. The patient denies fevers, chills, night sweats, lethargy, malaise, or any other symptoms to suggest infection. The patient denies swelling or redness of the knee. The patient and family have no other concerns at this time. PHYSICAL EXAM: The patient is a 16 y.o. in no apparent distress who is well developed and well nourished. On examination of the left knee, there is no obvious effusion noted. The skin is intact and there is no evidence of any erythema or warmth noted over the knee. There is no eccymosis noted. Upon palpation of the knee there no tenderness over the patella, medial/lateral aspects of the knee, tibia tubercle. The patient has full flexion And extension of the knee without any pain or discomfort. The bilateral lower extremities are neurovascularly intact to both motor and sensory testing . All 5 digits of the bilateral feet are pink and warm with brisk capillary refill noted. Pedal pulse is +2 bilaterally. Anterior and posterior drawer testing of the left knee is negative for instability. Mago testing is negative for instability. Sharona testing is positive for pain and catching, no locking. The patient has no pain or instability with varus or valgus stress of the knee. Apprehension testing is negative and the patient has good patellar tracking. Internal and external rotation of the bilateral hips is equal and symmetric and does not cause pain or discomfort. XRAYS: none DIAGNOSIS AND IMPRESSION: left knee meniscus tear. DISCUSSION/TREATMEN T PLAN: PRJ d/w patient indications for arthroscopic meniscus repair/excision. Advise otc nsaids prn pain. Advise may resume gym/sports as tolerated as directed. Followup with PRJ as needed and pending surgery. Parents/patient met with Samira in exam room to schedule date/time surgery. \ Normal [facility] Hand Cell Tuber Authentication Interface Message Text I have personally shared in the visit of Matt Lay, providing bedside participation in the E&M service. I saw and evaluated the patient and discussed the plan with the MASSIEL I have performed one each of the history, exam, and medical decision making, and agree with the above documentation as annotated and corrected by me in strikethrough and italics. As a split/shared visit involving both the surgeon and the MASSIEL, the substantive portion of the medical-decision making was completed by the me, Dr. Polina Malin Jr., M.D. Matt continues to have pain. He was diagnosed with a medial meniscus tear. He also has a Fitzgerald's cyst associated with it. This seems to be really affecting his volume of life. They are interested in having it fixed. I explained risk complications alternatives of surgery at length and they showed good understanding would like to proceed. Normal [facility] Vital Signs Date Time Vital Sign Value Performing Clinician [facility] 12-28-2024 18:44-0400 Body temperature 98.8 [degF] Dr. Jg Woodard DO Work Phone: [facility] 12-28-2024 18:44-0400 Diastolic blood pressure 92 mm[Hg] Dr. Jg Woodard DO Work Phone: [facility] 12-28-2024 18:44-0400 Heart rate 73 /min Dr. Jg Woodard DO Work Phone: [facility] 12-28-2024 18:44-0400 Respiratory rate 14 /min Dr. Jg Woodard DO Work Phone: [facility] 12-28-2024 18:44-0400 SaO2% (BldA) [Mass fraction] 100 % Dr. Jg Woodard DO Work Phone: [facility] 12-28-2024 18:44-0400 Systolic blood pressure 139 mm[Hg] Dr. Jg Woodard DO Work Phone: [phone])[phone] [place] [address] 12-28-2024 13:12-0400 Body mass index (BMI) [Ratio] 23.6 kg/m2 Dr. Jg Woodard DO Work Phone: 5(017)[phone] [place] [address] 12-28-2024 13:12-0400 Body weight 76.[address] Jg Woodard DO Work Phone: [phone])[phone] [place] [address] 12-28-2024 13:10-0400 Body height 180.[address] Jg Woodard DO Work Phone: 0(042)[phone] [place] [address] 12-28-2024 00:46-0400 Body temperature 98.2 [degF] Dr. Maximo Garcia DO Work Phone: [facility] 12-28-2024 00:46-0400 Diastolic blood pressure 71 mm[Hg] Dr. Maximo Garcia DO Work Phone: [facility] 12-28-2024 00:46-0400 Heart rate 87 /min Dr. Maximo Garcia DO Work Phone: 8(697)[phone] [place] [address] 12-28-2024 00:46-0400 Respiratory rate 18 /min Dr. Maximo Garcia DO Work Phone: [facility] 12-28-2024 00:46-0400 SaO2% (BldA) [Mass fraction] 100 % Dr. Maximo Garcia DO Work Phone: [facility] 12-28-2024 00:46-0400 Systolic blood pressure 139 mm[Hg] Dr. Maximo Garcia DO Work Phone: [facility] 12-27-2024 22:02-0400 Body height 180.[address] Maximo Garcia DO Work Phone: [facility] 12-27-2024 22:02-0400 Body mass index (BMI) [Ratio] 23.6 kg/m2 Dr. Maximo Garcia DO Work Phone: [facility] 12-27-2024 22:02-0400 Body weight 76.[address] Maximo Garcia DO Work Phone: [facility] 09-03-2022 14:00-0400 Body temperature 97.7 [degF] Tomas Malin Jr., MD Work Phone: [facility] 09-03-2022 14:00-0400 Diastolic blood pressure 88 mm[Hg] Tomas Malin Jr., MD Work Phone: [facility] 09-03-2022 14:00-0400 Heart rate 75 /min Tomas Malin Jr., MD Work Phone: [facility] 09-03-2022 14:00-0400 Respiratory rate 14 /min Tomas Malin Jr., MD Work Phone: [facility] 09-03-2022 14:00-0400 SaO2% (BldA) [Mass fraction] 99 % Tomas Malin Jr., MD Work Phone: [facility] 09-03-2022 14:00-0400 Systolic blood pressure 157 mm[Hg] Tomas Malin Jr., MD Work Phone: [facility] 09-03-2022 09:31-0400 Body height 178.5 cm Tomas Malin Jr., MD Work Phone: [facility] 09-03-2022 09:31-0400 Body mass index (BMI) [Percentile] Per age and sex 59.02 % Tomas Malin Jr., MD Work Phone: [facility] 09-03-2022 09:31-0400 Body mass index (BMI) [Ratio] 22.53 kg/m2 Tomas Malin Jr., MD Work Phone: [facility] 09-03-2022 09:31-0400 Body weight 71.8 kg Tomas Malin Jr., MD Work Phone: [facility] Encounters Encounter Date Encounter Type Care Provider Facility Start: 12-28-2024 End: 12-28-2024 Telephone encounter No Pcp (Hist) [facility] sierra Comment on above: Patient Question Start: 12-28-2024 End: 12-28-2024 Emergency department patient visit Dr. Jg Woodard DO Work Phone: -Emergency Department Work Phone: Start: 12-27-2024 End: 12-28-2024 Emergency department patient visit Dr. Maximo Garcia DO Work Phone: -Emergency Department Work Phone: Start: 03-05-2023 End: 03-05-2023 ambulatory MD NO PRIMARY CARE [facility] Start: 12-04-2022 End: 12-04-2022 ambulatory SELF REFERRED [facility] Start: 10-23-2022 End: 10-23-2022 ambulatory MD NO PRIMARY CARE [facility] Start: 09-18-2022 End: 09-18-2022 ambulatory MILDRED Barcenas DEBI [facility] Start: 09-03-2022 End: 09-03-2022 ambulatory MD NO PRIMARY CARE [facility] Start: 09-03-2022 End: 09-03-2022 Subsequent hospital visit by physician Tomas Malin MD Work Phone: [facility] Comment on above: Other tear of medial meniscus of left knee as current injury, initial encounter (Primary Dx) Start: 07-29-2022 End: 07-29-2022 ambulatory MD NO PRIMARY CARE [facility] Start: 07-09-2022 End: 07-09-2022 ambulatory DALIA MAURICE [facility] Start: 11-04-2005 Patient encounter status No (Hist) [facility] Procedures Date Procedure Procedure Detail Performing Clinician Start: 12-28-2024 CT of head without contrast Dr. Jg Woodard DO Work Phone: Start: 12-28-[address] Jg Woodard DO Work Phone: Start: 12-27-[address] Maximo Garcia DO Work Phone: Start: 12-27-2024 Streptococcus pyogen es rRNA assay Dr. Maximo Garcia DO Work Phone: Plan of Treatment Date Care Activity Detail Author Start: 02-19-2025 Influenza vaccination Influenza Vaccine (#1) [facility] Start: 12-28-2024 [facility] Start: 12-28-2024 [facility] Start: 02-20-2024 Covid-19 Vaccine ( season) Covid-19 Vaccine () [facility] Start: 10-14-2022 End: 10-14-2022 Patient encounter procedure 10/14/2022 9:20 AM EDT Office Visit Orthopedic[address], [address] [place] [address] Tomas Malin Jr., MD [address] [place] [address] [place] [address] [facility] Start: 2022 Anxiety Screening Anxiety Screening [facility] Start: 2022 Depression Screening Depression Screening [facility] Start: 2022 Hepatitis C screening Hepatitis C Screening [facility] Start: 2022 HIV screening HIV Screening [facility] Start: 09-18-2022 End: 09-18-2022 Patient encounter procedure 09/18/2022 1:00 PM EDT Office Visit [address], [address] [place], [place] [id number] [phone] Mildred Bruner, MOBILE ARCHITECT-LE[employer] [place] [address] [facility] Start: 09-03-2022 End: 09-03-2022 ARTHROSCOPY KNEE MENISCAL REPAIR ARTHROSCOPY KNEE MENISCAL REPAIR Tear of medial meniscus of left knee, unspecified tear type, unspecified whether old or current tear, subsequent encounter 09/03/2022 11:35 AM EDT [facility] Start: 02-19-2022 FLU (#1) FLU (#1) [facility] Start: 2020 MenACWY (1 - 2-dose series) MenACWY (1 - 2-dose series) [facility] Start: 2020 MenB (1 of 2 - MenB 2-Dose Series Bexsero) MenB (1 of 2 - MenB 2-Dose Series Bexsero) [facility] Start: 2020 Meningococcal B Vaccine (1 of 2 - Standard) Meningococcal B Vaccine (1 of 2 - Standard) [facility] Start: 09-20-2019 Hearing Screening Hearing Screening [facility] Start: 09-20-2019 HPV Vaccine (1 - Male 3-dose series) HPV Vaccine (1 - Male 3-dose series) [facility] Start: 09-20-2019 Vision Screening Vision Screening [facility] Start: 2018 Peds To Adult Transition Annual Assessment Peds To Adult Transition Annual Assessment [facility] Start: 2016 Peds To Adult Transition Initial Discussion Peds To Adult Transition Initial Discussion [facility] Start: 09-20-2015 HPV (1 - Male 2-dose series) HPV (1 - Male 2-dose series) [facility] Start: 09-20-2015 Urine microalbumin profile DTaP,Tdap,Td Vaccine (5 - Tdap) [facility] Start: 09-20-2011 Tetanus Diphtheria and Pertussis Vaccines (1 - Tdap) Tetanus Diphtheria and Pertussis Vaccines (1 - Tdap) [facility] Start: 2005 Hepatitis A (1 of 2 - 2-dose series) Hepatitis A (1 of 2 - 2-dose series) [facility] Start: 2005 MMR (1 of 2 - Standard series) MMR (1 of 2 - Standard series) [facility] Start: 2005 Varicella (1 of 2 - 2-dose childhood series) Varicella (1 of 2 - 2-dose childhood series) [facility] Start: 03-21-2005 COVID-19 (#1) COVID-19 (#1) [facility] Start: 2004 Polio (1 of 3 - 4-dose series) Polio (1 of 3 - 4-dose series) [facility] Start: 2004 Hepatitis B (1 of 3 - 3-dose series) Hepatitis B (1 of 3 - 3-dose series) [facility] Patient Education ED Headache Un specified ED Viral Syndrome (Adult) [facility] Work Phone: Immunizations Immunization Date Immunization Notes Care Provider Fa [facility] 12-30-2009 diphtheria, tetanus toxoids and acellular pertussis vaccine No (Hist) [facility] 12-30-2009 poliovirus vaccine, inactivated No (Hist) [facility] 12-10-2009 measles, mumps and r ubella virus vaccine No (Hist) [facility] 12-10-2009 varicella virus vaccine No (Hist) [facility] 06-01-2006 hepatitis B vaccine, pediatric or pediatric/adolescent dosage No (Hist) [facility] 06-01-2006 pneumococcal conjuga te vaccine, 7 valent No ([facility]) [facility] 03-17-2006 haemophilus influenz ae type b vaccine, HbOC conjugate No ([facility]) [facility] 03-17-2006 measles, mumps and r ubella virus vaccine No (Hist) [facility] 03-17-2006 varicella virus vaccine No (Hist) [facility] 11-04-2005 DTaP-hepatitis B and poliovirus vaccine No (Hist) [facility] 11-04-2005 haemophilus influenz ae type b vaccine, HbOC conjugate No (Hist) [facility] 11-04-2005 pneumococcal conjuga te vaccine, 7 valent No (Hist) [facility] 09-08-2005 DTaP-hepatitis B and poliovirus vaccine No (Hist) [facility] 09-08-2005 haemophilus influenz ae type b vaccine, HbOC conjugate No (Hist) [facility] 09-08-2005 pneumococcal conjuga te vaccine, 7 valent No ([facility]) [facility] 07-07-2005 DTaP-hepatitis B and poliovirus vaccine No (Hist) [facility] 07-07-2005 haemophilus influenz ae type b vaccine, HbOC conjugate No (Hist) [facility] 07-07-2005 pneumococcal conjuga te vaccine, 7 valent No (Hist) [facility] Payers Date Payer Category Payer Unknown [facility] [employer] [facility] [employer] [id number] 2021-Present [phone] [place] [address] [id number] 2004 Unknown [id number] 2004 Unknown [id number] 2004 Unknown [id number] 1981 Unknown [id number] 1981 Unknown [id number] 1981 Unknown [id number] 1981 Unknown [id number] Unknown [id number] Unknown [id number] Unknown [id number] Unknown 127 Social History Date Type Detail Facility Start: 07[facility]09-[facility]22 [facility] Start: 2005 Sex Assigned At Not on file [facility] Start: 03-13-2020 End: 05-26-2020 Gender identity Not on file [facility] Start: 07-11-2019 End: 12-27-2024 Tobacco smoking status NHIS Never smoked tobacco (finding) [facility] Start: 2004 Sex Assigned At Male [facility] Start: 07-11-2019 Tobacco use and exposure Smokeless tobacco non-user [facility] Start: 03-13-2020 Alcoholic beverage intake Current non-drinker of alcohol (finding) [facility] Start: 03-13-2020 End: 05-26-2020 History of Social function [facility] National Score (1-100), lower number is lower risk Not on file [facility] Medical Equipment Procedure Code Equipment Code Equipment Origin al Text Equipment Identifier Dates Fast Fix Flex Cvd [id number] Start: 09-03-2022 Mental Status Date Assessment Result Facility 12-28-2024 Cognitive function Level Of Cons ciousness Awake;Alert;Appropriate;Follow s Commands [facility] Work Phone: 12-27-2024 Cognitive function Level Of Cons ciousness Awake;Alert;Appropriate;Follow s Commands [facility] Work Phone: Clinical Notes 09-03-2022 to 12-28-2024 Note Date & Type Note Facility 12-28-2024 Discharge summary [facility] 12-28-2024 Radiology Diagnostic study note [facility] Imaging Services [address] [place], [place] [address] Brain/Head without Contrast MR#: [id number] Acct: [id number] Name: MATT LAY Kendra Rep #: [id number] : 2005 M 19 From: Myke Kaur MD PCP: Care Physician,No Primary Status: REG ER Study:Brain/Head without Contrast Date of Exa m: 12/28/24 Exam# [id number] Ordering Dr: Millei Woodard DO PROCEDURE: BRAIN/HEAD WITHOUT CONTRAST 12/28/2024 REASON FOR EXAM: HEADACHE TECHNIQUE: BRAIN/HEAD WITHOUT CONTRAST Coronal and Sagittal reconstruction series were provided. One or more dose reduction techniques were used (e.g., Automated exposure control, adjustment of the mA and/or kV according to patient size, use of iterative reconstruction technique. RADIATION DOSE SUMMARY: CTDlvol: 44.99 mGy DLP: 812.98 mGycm COMPARISON: None. FINDINGS: No acute intracranial hemorrhage, extra-axial collection, mass effect or evidence of acute infarct. Ventricles and subarachnoid spaces are normal in size. Asymmetric narrow caliberof the left lateral ventricle relative to the right, an anatomic variant. Unremarkable orbits. Intact skull base and calvarium. Complete opacification of right maxillary sinuswith hypoplasia relative to the left maxillary sinus. Remainder of paranasal sinuses and mastoid air cells are clear. CT/Brain/Head without Contrast IMPRESSION: 1. No acute intracranial abnormality. 2. Right maxillary sinus disease. Reading Location: [id number] CC: Dr. Jg Woodard DO; No Primary Care Physician ~ Detective Captain: Signed [facility] 12-28-2024 Discharge summary Note Date/Time December 28, 2024 6:44pm [facility] Medical Records Department [address] [place] [address] Emergency Department Summary 12/28/24 MR#: [id number] Acct: [id number] Name: MATT LAY Rep #:[id number] : 2005 19 From: Jg Woodard DO PCP: Care Physician,No Primary Status :REG ER Location: ED HPI History of Present Illness Chief Complaint: General Illness Narrative Narrative: Patient is a 19-year-old male with no known significant past medical history whopresented to the emergency department the chief complaint of headache, nausea vomiting not feeling well. According to the parents he was just here last nightaround 10 PM was given a migraine cocktail and was sent home. They noted that he still is having a headache and having nausea and vomiting not feeling well therefore they brought him back. They deny any recent contacts. PFSH PFSH Home Medications ?Medication ?Instructions ?Recorded ?Last Taken ?Type No Known/Unobtainable [No Known 5 Unknown History Home Medications] Allergy/AdvReac Type Severity Reaction Status Date / Time No Known Allergies Allergy Verified 12/28/24 13:13 Family History no significant family his Surgical History Status post medial meniscus repair of left knee Surgical History no surgical history Social History Smoking Status: Never smoker ROS ROS ED ROS Narrative Constitutional: Complains of fever and chills as well as headache denies lightheadedness or dizziness Eyes: Denies double vision blurry vision change in vision Abdomen: Complains of nausea and vomiting as noted above denies any abdominal pain : Denies urinary symptoms Neurological: Denies numbness, weakness, tingling Musculoskeletal: Denies back pain Skin: Denies any rashes or lesions EXAM Physical Exam Narrative Exam Narrative: General: Patient was lying in bed rest comfortably did not appear to be acute distress Head: Atraumatic, normocephalic Eyes: PERRL bilaterally, EOMI blood, no conjunctival injection noted Neck: Soft, supple, trachea midline Cardiovascular: Regular rate and rhythm no murmurs gallops rubs noted Respiratory: Clear to auscultation bilaterally Abdomen: Soft, nondistended, no tenderness palpation Extremities: +5/5 strength noted in the bilateral upper and lower extremities Neurological: Patient following commands knew that he was at [facility] year is 2024. No concern for meningitis Skin: Warm, dry, intact no rashes or lesions noted no petechia no purpura Const Vital Signs: 12/28/24 13:10 12/28/24 13:26 12/28/24 15:10 Temperature 98.8 F Temperature Source Oral Pulse Rate 79 76 Respiratory Rate 16 16 Respiratory Effort Normal Respiratory Pattern Normal Blood Pressure 134/80 H 127/80 H Blood Pressure Mean 98 95 Pulse Ox 100 100 Oxygen Delivery Method Room Air Room Air 12/28/24 17:00 Temperature Temperature Source Pulse Rate 73 Respiratory Rate 14 Respiratory Effort Respiratory Pattern Blood Pressure 139/92 H Blood Pressure Mean 107 Pulse Ox 100 Oxygen Delivery Method Room Air MDM MDM MDM Narrative Medical decision making narrative: Patient is a 19-year-old male who presented to the emergency department chief complaint of headache, nausea vomiting. On the differential diagnosis includes but not limited to migraine headache, viral gastroenteritis, dehydration, electrolyte abnormality. Once workup is obtained reviewed he will be reevaluated. Patient be given IV fluids Zofran and Toradol. Patient CBC was reviewed and showed no evidence of leukocytosis white blood count of 9.5, he was 15.2, platelet count of 283. Patient sodium 136, potassium normal at 4, creatinine normal at 0.80. Patient's glucose was 122, AST and ALT were 40 and 69 respectively total bilirubin normal at 0.36. Patient lipase normal at 24. Patient's CT head brain without contrast showed no acute intracranial abnormalities. On reevaluation the patient and he states that he was still having a headache and was feeling better but not significantly. He was ordered Toradol Benadryl and D5 NS. On reevaluation of the patient again and he is feeling better he did pass oral challenge. Repeat abdominal exam performed again at 6:35 PM his abdomen remainsbenign therefore do not feel that CT abdomen pelvis is indicated at this point in time. He was advised to follow-up with In outpatient settings to start with a bland diet and advance as tolerated. He already has Zofran at home ODT he is advised to use this as prescribed. Parents and himself are agreeable withthis plan all question concerns answered he was discharged home in stable condition. Lab Data Labs: Laboratory Results - last 24 hr 12/28/24 13:33 WBC 9.5 RBC 4.83 Hgb 15.2 Hct 43.2 MCV 89.4 MCH 31.5 MCHC 35.2 RDW Std Deviation 38.5 RDW Coeff of Elmer 11.9 Plt Count 283 MPV 9.5 Immature Gran % (Auto) 0.400 Neut % (Auto) 85.2 H Lymph % (Auto) 6.9 L Glasscock % (Auto) 7.4 Eos % (Auto) 0.0 Baso % (Auto) 0.1 Absolute Neuts (auto) 8.1 H Absolute Lymphs (auto) 0.66 L Nucleated RBC % 0 Sodium 136 Potassium 4.0 Chloride 99 Carbon Dioxide 21.6 Anion Gap 16 H BUN 11 Creatinine 0.80 Estim Creat Clear Calc 156.88 Est GFR (MDRD) Non-Af 130 BUN/Creatinine Ratio 14.1 Glucose 122 H Calcium 9.7 Total Bilirubin 0.36 AST 40 H ALT 69 H Alkaline Phosphatase 83 Total Protein 7.9 Albumin 4.6 Globulin 3.2 Albumin/Globulin Ratio 1.4 Lipase 24 Radiography Diagnostic Testing: Clinical Impression(s) from Imaging Studies Brain CT 12/28/24 15:14 IMPRESSION: 1. No acute intracranial abnormality. 2. Right maxillary sinus disease. Reading Location: [id number] Discharge Plan Triage Chief Complaint: General Illness ED Provider: Jg Woodard Dx/Rx/DC Orders Clinical Impression: Headache, Nausea & vomiting Prescriptions: No Action No Known Home Medications Primary Care Provider: Care Physician,No Primary Referrals: Care Physician,No Primary [Primary Care Provider] - Activity Restrictions/Additional Instructions: Follow-up with your doctor in outpatient setting. Return with worsening symptoms or concerns. Your CT of your head was normal, your blood work did not show any acute findings no evidence of dehydration. Ensure that you are adequately hydrating with plenty of water start with a bland diet such as crackers, plain toast etc. and advance as tolerated. Rotate Tylenol and ibuprofen [id number] for your headache when you do this she can take something every 3 hours max dose of Tylenol in 24 hours 4000 mg max dose of ibuprofen in 24 hours 3200 mg. Use Zofran that you have at home as prescribed Print Language: Dominican Disposition Disposition: Home, Self Care What to do if you have Problems For any increased pain, shortness of breath, bleeding, nausea or vomiting, chestpain, or any unexpected problems, contact your Primary Care Provider. Call [facility] ([phone]) or report to the closest Emergency Room. Call 911 if necessary. 12/28/241843 <Electronically signed by Jg Woodard DO> Cosigner Signature (if applicable): CC: No Primary Care Physician ~ Signed [facility] Work Phone: [phone] 701-812107-10-2025 Telephone encounter Note* Telephone Encounter - Marley Fernandez RN - 12/28/2024 12:06 PM EDT Mother calls to report that patient was at ER yesterday for severe headache and nausea. He was diagnosed with Migraine and sent home. Zofran is not helping the nausea. He is now vomiting profusely atleast every hour. Severe headache and fever from Wednesday until now. Concern for dehydration and mother asking if patient can come here for IV fluids. Not a current patient with [facility]. Recommended taking patient back to the ER for severe headache, nausea, vomiting, and fever. Marley Fernandez RN [facility]07-10-2025 Miscellaneous Notes* Telephone Encounter - Marley Fernandez RN - 12/28/2024 12:06 PM EDT Mother calls to report that patient was at ER yesterday for severe headache and nausea. He was diagnosed with Migraine and sent home. Zofran is not helping the nausea. He is now vomiting profusely atleast every hour. Severe headache and fever from Wednesday until now. Concern for dehydration and mother asking if patient can come here for IV fluids. Not a current patient with [facility]. Recommended taking patient back to the ER for severe headache, nausea, vomiting, and fever. Marley Fernandez RN documented in this encounterOhio [facility]09-15-2023 NoteI have seen and evaluated the patient. I have obtained the galindo portions of the history and physical examination. I have discussed the patient with the resident. I have reviewed the resident s documentation and agree with it. The medical decision making was done together with the resident and is as documented in the resident s note.[facility]03-16-2023 Procedure note* Op Note - Tomas Malin Jr., MD - 09/03/2022 1:14 PM EDT Matt Lay [id number] DOS: 09/03/2022 : 2005 SURGEON: TOMAS MALIN JR., M.D. HEBREW PROFESSOR: Sriram Quintanilla MD, Yahaira Sosa DO PREOPERATIVE DIAGNOSIS: left knee medial and lateral meniscus tear. POSTOPERATIVE DIAGNOSIS: left knee Lateral meniscus horizontal cleavage tear. OPERATION: left knee arthroscopic Lateral meniscus partial meniscectomy and repair with all inside technique. COMPLICATIONS: None. FLUIDS: 1000 mL of crystalloid. ESTIMATED BLOOD LOSS: 3 mL. ANESTHESIA: General plus local 20 cc 0.5% ropivicaine CLINICAL HISTORY: This is an 16 y.o. male who plays basketball and injured the leg approximately 1 year ago. he was diagnosed with a medial and lateral meniscus tear which was confirmed on MRI. he was sent to me for surgical intervention. Treatment options were reviewed and we did agree to proceed with surgery. After explaining the risks, complications, and alternatives of the procedure with the patient and family. Parents did sign informed consent, showing understanding of these and their wishto proceed. DESCRIPTION OF OPERATIVE PROCEDURE: The patient was brought into the operating room and placed supine on a regular operating room table. He was given general anesthesia and his airway was protected by the Anesthesia team. We padded all of his bony prominences and a well-padded tourniquet was applied to his left upper thigh. The patient was sterilely prepped and draped in the usual orthopedic fashion. A time-out was performed to ensure the correct patient, correct extremity, correct site, and wewere doing the correct procedure. We all agreed. The limb was exsanguinated with an Esmarch bandage and the tourniquet was inflated to 250 mmHg. Theknee was insufflated with 30 cc of sterile normal saline through the superolateral portal using an 18 g spinal needle. A standard anterolateral viewing portal was established using an 11-blade scalpel. A diagnostic arthroscopy was performed. The patellofemoral joint looked excellent with normal cartilage and appropriate articulation. No loose bodies in gutters. I went into the notch and we then established a medial portal using needle localization and then the 11-blade scalpel. I went into the medial compartment. The cartilage of the femur and tibia was normal. The meniscus revealed a normal flounce. We probed the meniscus and it found to be completely stable at the root posterior horn bodyand anterior horn. The undersurface revealed no tears. The ACL was probed and was normal. I then went into the lateral knee. 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 The meniscus had a complex tear. There was a parrot-beak flap flipped up into the lateral gutter. There were a few small loose bodies within the lateral gutter that likely represented old pieces of meniscus. After probing it was apparent that there was a horizontalcleavage component and the inferior leaflet is what avulsed and was flapped up into the lateral gutter. Therefore we removed the flap using a shaver. We are also able to remove the cartilaginous loose bodies using the 4.0 mm shaver. We then trimmed the superior leaflet back so that it was collinearwith the inferior leaflet using a biter. There was still a large horizontal cleavage component herethat went all the way to the capsule and so this was repaired with 4 vertical mattress all inside fast flex stitches in a hay bale style. This did an excellent job of compressing the horizontal curtis vage component and the tear was not visible anymore. Final pictures were taken. The scope was used to suck out fluid from the knee and the scope was removed. The portals were closed with buried 3-0 Monocryl in an interrupted fashion and steri-strips were applied, followed by sterile dressing and a Cryo/Cuff. A long Breg brace was applied in 0 to 90 degrees, and he will be touchdown weightbearing for 6 weeks. He was awakened from anesthesia and transferred to the PACU in stable condition. POSTOPERATIVE PLAN: The patient will be 0 to 30 in his brace. he can be touchdown weightbearing. Wewant to see him back in 2 weeks. At that time we will advance his weightbearing to weightbearing astolerated. We can discuss the possibility of physical therapy but I do not think it is critical. Clearance for sports which in his case would be basketball would be 4 months. I was present and scrubbed for the entire procedure. [id number] Miscellaneous Notes* Op Note - Tomas Malin Jr., MD - 09/03/2022 1:14 PM EDT Matt Lay [id number] DOS: 09/03/2022 : 2005 SURGEON: TOMAS MALIN JR., MCandice. HEBREW PROFESSOR: Sriram Quintanilla MD, Yahaira Sosa DO PREOPERATIVE DIAGNOSIS: left knee medial and lateral meniscus tear. POSTOPERATIVE DIAGNOSIS: left knee Lateral meniscus horizontal cleavage tear. OPERATION: left knee arthroscopic Lateral meniscus partial meniscectomy and repair with all inside technique. COMPLICATIONS: None. FLUIDS: 1000 mL of crystalloid. ESTIMATED BLOOD LOSS: 3 mL. ANESTHESIA: General plus local 20 cc 0.5% ropivicaine CLINICAL HISTORY: This is an 16 y.o. male who plays basketball and injured the leg approximately 1 year ago. he was diagnosed with a medial and lateral meniscus tear which was confirmed on MRI. he was sent to me for surgical intervention. Treatment options were reviewed and we did agree to proceed with surgery. After explaining the risks, complications, and alternatives of the procedure with the patient and family. Parents did sign informed consent, showing understanding of these and their wishto proceed. DESCRIPTION OF OPERATIVE PROCEDURE: The patient was brought into the operating room and placed supine on a regular operating room table. He was given general anesthesia and his airway was protected by the Anesthesia team. We padded all of his bony prominences and a well-padded tourniquet was applied to his left upper thigh. The patient was sterilely prepped and draped in the usual orthopedic fashion. A time-out was performed to ensure the correct patient, correct extremity, correct site, and wewere doing the correct procedure. We all agreed. The limb was exsanguinated with an Esmarch bandage and the tourniquet was inflated to 250 mmHg. Theknee was insufflated with 30 cc of sterile normal saline through the superolateral portal using an 18 g spinal needle. A standard anterolateral viewing portal was established using an 11-blade scalpel. A diagnostic arthroscopy was performed. The patellofemoral joint looked excellent with normal cartilage and appropriate articulation. No loose bodies in gutters. I went into the notch and we then established a medial portal using needle localization and then the 11-blade scalpel. I went into the medial compartment. The cartilage of the femur and tibia was normal. The meniscus revealed a normal flounce. We probed the meniscus and it found to be completely stable at the root posterior horn bodyand anterior horn. The undersurface revealed no tears. The ACL was probed and was normal. I then went into the lateral knee. 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 The meniscus had a complex tear. There was a parrot-beak flap flipped up into the lateral gutter. There were a few small loose bodies within the lateral gutter that likely represented old pieces of meniscus. After probing it was apparent that there was a horizontalcleavage component and the inferior leaflet is what avulsed and was flapped up into the lateral gutter. Therefore we removed the flap using a shaver. We are also able to remove the cartilaginous loose bodies using the 4.0 mm shaver. We then trimmed the superior leaflet back so that it was collinearwith the inferior leaflet using a biter. There was still a large horizontal cleavage component herethat went all the way to the capsule and so this was repaired with 4 vertical mattress all inside fast flex stitches in a hay bale style. This did an excellent job of compressing the horizontal curtis vage component and the tear was not visible anymore. Final pictures were taken. The scope was used to suck out fluid from the knee and the scope was removed. The portals were closed with buried 3-0 Monocryl in an interrupted fashion and steri-strips were applied, followed by sterile dressing and a Cryo/Cuff. A long Breg brace was applied in 0 to 90 degrees, and he will be touchdown weightbearing for 6 weeks. He was awakened from anesthesia and transferred to the PACU in stable condition. POSTOPERATIVE PLAN: The patient will be 0 to 30 in his brace. he can be touchdown weightbearing. Wewant to see him back in 2 weeks. At that time we will advance his weightbearing to weightbearing astolerated. We can discuss the possibility of physical therapy but I do not think it is critical. Clearance for sports which in his case would be basketball would be 4 months. I was present and scrubbed for the entire procedure. * Plan of Care - Nikky Avalos RN - 09/03/2022 1:02 PM EDT Problem: Anxiety, Patient/Family Goal: Effective coping Outcome: Ongoing Problem: Pain - Acute Goal: Reduced pain sensation Outcome: Ongoing Problem: Transition Readiness Goal: Knowledge of discharge instructions Outcome: Ongoing Goal: Able to safely transition to next level of care Outcome: Ongoing Problem: Falls, Risk of Goal: Absence of falls Outcome: Ongoing Goal: Absence of physical injury Outcome: Ongoing Problem: Infection Risk, Surgical Site Goal: Absence of infection signs and symptoms Outcome: Ongoing Problem: Adverse Surgical Event, Risk of Goal: Absence of injury Outcome: Ongoing * Plan of Care - Bee Muñiz RN - 09/03/2022 12:13 PM EDT Problem: Anxiety, Patient/Family Goal: Effective coping 09/03/2022 1213 by Bee Muñiz RN Outcome: Ongoing 09/03/2022 1212 by Bee Mñuiz RN Outcome: Ongoing Problem: Falls, Risk of Goal: Absence of falls Outcome: Ongoing Goal: Absence of physical injury Outcome: Ongoing Problem: Infection Risk, Surgical Site Goal: Absence of infection signs and symptoms Outcome: Ongoing Problem: Adverse Surgical Event, Risk of Goal: Absence of injury Outcome: Ongoing documented in this [facility]23 Plan of care note* Plan of Care - Nikky Avalos RN - 09/03/2022 1:02 PM EDT Problem: Anxiety, Patient/Family Goal: Effective coping Outcome: Ongoing Problem: Pain - Acute Goal: Reduced pain sensation Outcome: Ongoing Problem: Transition Readiness Goal: Knowledge of discharge instructions Outcome: Ongoing Goal: Able to safely transition to next level of care Outcome: Ongoing Problem: Falls, Risk of Goal: Absence of falls Outcome: Ongoing Goal: Absence of physical injury Outcome: Ongoing Problem: Infection Risk, Surgical Site Goal: Absence of infection signs and symptoms Outcome: Ongoing Problem: Adverse Surgical Event, Risk of Goal: Absence of injury Outcome: Ongoing [facility]03-16-2023 Plan of care note* Plan of Care - Bee Muñiz RN - 09/03/2022 12:13 PM EDT Problem: Anxiety, Patient/Family Goal: Effective coping 09/03/2022 1213 by Bee Muñiz RN Outcome: Ongoing 09/03/2022 1212 by Bee Muñiz RN Outcome: Ongoing Problem: Falls, Risk of Goal: Absence of falls Outcome: Ongoing Goal: Absence of physical injury Outcome: Ongoing Problem: Infection Risk, Surgical Site Goal: Absence of infection signs and symptoms Outcome: Ongoing Problem: Adverse Surgical Event, Risk of Goal: Absence of injury Outcome: Ongoing [facility]03-16-2023 History and physical note* Tomas Malin Jr., MD - 09/03/2022 11:21 AM EDT I have reviewed the previous H&P performed by the PLASTIC PRODUCTION MACHINE SETTER/resident and agree with the documentation.I have examined the patient, reviewed the H&P, and there are no changes. If changes and updatesare needed they are documented here: [facility]03-16-2023 History and physical note* Tomas Malin Jr., MD - 09/03/2022 11:21 AM EDT I have reviewed the previous H&P performed by the PLASTIC PRODUCTION MACHINE SETTER/resident and agree with the documentation.I have examined the patient, reviewed the H&P, and there are no changes. If changes and updatesare needed they are documented here: documented in this encounterFulton [facility] CenterEvaluation note* Diagnosis Tear of medial meniscus of left knee- Primary Other tear of medial meniscus of left knee as current injury, initial encounter documented in this encounter [facility] noteNo assessment information available [facility] Work Phone: Hospital Discharge instructionsAdditional Instructions Your workup today revealed no clinically significant findings indicating your symptoms are most likely related to a virus. This will last on average 3 to 7 days. Take 600 mg / 3 pills of Advil 3-4 times a day to help control headache and pain. Use Zofran as directed to help with bouts of nausea and vomiting. Return to the ER should you have any further concerns or worsening of symptomsWCoshocton [facility] Work Phone: Hospital Discharge instructionsAdditional Instructions Follow-up with your doctor in outpatient setting. Return with worsening symptoms or concerns. Your CT of your head was normal, your blood work did not show any acute findings no evidence of dehydration. Ensure that you are adequately hydrating with plenty of water start with a bland diet such as crackers, plain toast etc. and advance as tolerated. Rotate Tylenol and ibuprofen [id number] for your headache when you do this she can take something every 3 hours max dose of Tylenol in 24 hours 4000 mg max dose of ibuprofen in 24 hours 3200 mg. Use Zofran that you have at home as prescribedWCoshocton Regional Medical Center Work Phone: Reason for referral (narrative)No reason for referral information availableWCoshocton Regional Medical Center Work Phone: Summary Purpose Family History No Family History Records Found Advance Directives Advance Directive Response Recorded Date/ Time Do you have a Healthcare Power of Perinatal Nurse? No December 27, 2024 10:23pm Advance Directive Response Recorded Date/ Time Do you have a Healthcare Power of Perinatal Nurse? No December 28, 2024 1:25pm Chief Complaint and Reason for Visit Chief Complaint Admit Date HEADACHE December 27, 2024 10:01 pm Chief Complaint Admit Date GENERAL ILLNESS December 28, 2024 1:10 pm Additional Source Comments Reason for Visit (unrecogniz ed section and content) Specialty Diagnoses / Procedures Referred By Yen barcenas Referred To Contact Diagnoses Tear of medial meniscus of left knee, unspecified tear type, unspecified whether old or current tear, subsequent encounter Tear of medial meniscus of left knee, unspecified tear type, unspecified whether old or current tear, subsequent encounter [S83.242D] Procedures SC KNEE SCOPE,MED OR LAT MENIS REPAIR ARTHROSCOPY KNEE MENISCAL REPAIR [facility] [place] [address] [place] [address] Referral ID Status Reason Start Date Expiration Date Visits Re quested Visits Authorized [id number] 1 1 Reason Comments Patient Question Continuous Active and Recently Administ ered Medications (unrecognized section and content) Medication Order 09/01/2022 09/02/2022 09/03/2022 Lactated Ringers IV CONTINUOUS, Intravenous, at 112 mL/hr, Starting on Farzana 09/03/22 at 1330, For 90 days, PACU 1314 (Restarted from Bag - Provider: Nikky Avalos RN)1444 (Due: Stopped) PRN Medication Order 09/01/2022 09/02/2022 09/03/2022 Oxygen See Flowsheet Row, PRN, Starting on Farzana 09/03/22 at 1309, Until Farzana 09/03/22 at 1444, Keep sats greater or equal to 95% ROPivacaine (NAROPIN) 0.5% injection (CANCELED) PRN, Starting on Farzana 09/03/22 at 1252, Until Farzana 09/03/22 at 1252, Intra-op 1155 (Given - Provid er: Tomas Malin Jr., MD) Care Teams (unrecognized sec tion and content) Electric Car Operator Relationship Specialty Start Date End Date No Primary Care, [place] [address] PCP - General Pediatrics 06/17/22 Team Status: Active Member Role/Relationship Status Dates No Primary Care Physician Primary Care Provider Active Team Status: Inactive Member Role/Relationship Status Dates Dr. Maximo Garcia , DO Emergency Provider Active Start: December 27, 2024 End: December 28, 2024 No Primary Care Physician Primary Care Provider Active Start: December 27, 2024 End: December 28, 2024 Team Status: Inactive Member Role/Relationship Status Dates Dr. Jg Woodard , DO Referring Provider Active Start: December 28, 2024 End: December 28, 2024 Dr. Jg Woodard , DO Emergency Provider Active Start: December 28, 2024 End: December 28, 2024 No Primary Care Physician Primary Care Provider Active Start: December 28, 2024 End: December 28, 2024 (unrecognized sect ion and content) No Status Records Found INFORMATION SOURCE (unrecogn ized section and content) DATE CREATED AUTHOR 06/19/2023 [facility] Goals (unrecognized section and content) Goals may be documented in a n alternate sectionGoals may be documented in an alternate section Source Comments (unrecognize d section and content) In the event this informatio n is protected by the Federal Confidentiality of Alcohol and Drug Abuse Patient Records regulations: The Federal rules restrict any use of the information to criminally investigate or prosecute any alcohol or drug abuse patient.[facility] FOR RECORDS PERTAINING TO PATIENTS WHO ARE OR HAVE BEEN ENROLLED IN A CHEMICAL DEPENDENCY/SUBSTANCEABUSE PROGRAM, SOME INFORMATION MAY BE OMITTED. This clinical summary was aggregated from multiple sources. Caution should be exercised in using it in the provision of clinical care. This summary normalizes information from multiple sources, and as a consequence, information in this document may materially change the coding, format and clinical context of patient data. In addition, data may be omitted in some cases. CLINICAL DECISIONS SHOULD BE BASED ON THE PRIMARY CLINICAL RECORDS. [facility]. provides no warranty or guarantee of the accuracy or completeness of information in this document.
== END 2024-12-28 18:49 | disposition home or self-care (01) ==
PROVIDERS: Emergency Provider Emergency Medicine; Referring Provider Emergency Medicine; Visit Provider Emergency Medicine
DX: R11.2 Nausea with vomiting, unspecified (principal); R51.9 Headache, unspecified
CPT/HCPCS: 70450; 80053; 83690; 85025; 96361; 96374; 96375; 99283; A4216; J2405